=== PATIENT | female | born 1980 | race Caucasian/White ===

== ENCOUNTER → 2016-11-28 | Outpatient (CLI) | payer OTHER ==
--- NOTE | 2016-11-28 09:18 | NM ---
EXAMINATION TYPE: NM hepatobiliary w EF DATE OF EXAM: 11/28/2016 COMPARISON: NONE HISTORY: Right upper quadrant pain. TECHNIQUE: After the intravenous administration of 5.06 mCi Tc 99m Mebrofenin hepatobiliary scintigra phy is performed. Immediate images post injection. FINDINGS: There is satisfactory initial accumulation of tracer by the liver. The gallbladder is visualized wit hin 18 minutes. The small bowel activity is noted within 18 minutes. At one hour 8 ounces of oral e nsure plus is given to mimic CCK and gallbladder ejection fraction is calculated at 82 %, above leslie l. Therefore there is no scintigraphic evidence of cystic or common bile duct obstruction to suggest acute cholecystitis or gallbladder dyskinesia. IMPRESSION: HYPERCONTRACTILITY OF THE GALLBLADDER.
== END | disposition home or self-care (01) ==
LOC: RADNMMAIN 06:51
PROVIDERS: ATTEND Family Medicine
DX: K82.8 Other specified diseases of gallbladder (principal); R10.11 Right upper quadrant pain
CPT/HCPCS: 78226; A9537

== ENCOUNTER 2016-12-16 06:27 | Day surgery (SDC) | payer OTHER ==
[2016-12-13 11:27] VITALS: BMI 18.6
[~2016-12-16 06:27] MED LIST: DEXAMETHASONE SOD PHOSPHATE 10 MG/ML 1 ML VIAL IV ONE; HEPARIN SODIUM,PORCINE 5,000 UNIT/ML 1 ML VIAL SQ ONE; LACTATED RINGERS 1,000 ML IV SCH; MIDAZOLAM 2 MG/2 ML VIAL IV PRN; SCOPOLAMINE 1.5MG/72HR PATCH TRANSDERM ONE; ceFAZolin 2 GM in SODIUM CHLORIDE 0.9% 100 ML IVPB ONE
[2016-12-16 07:02] LABS: Glucose,Whole Blood 91 mg/dL (75-99)
[2016-12-16] MEDS: ONDANSETRON 4 MG/2 ML VIAL IVP ONE ×2 (07:10→10:05)
[2016-12-16] MEDS ORDERED: KETOROLAC 30 MG/ML 1 ML VIAL ONE (08:09)
[2016-12-16] MEDS ORDERED: ROCURONIUM BROMIDE 10 MG/ML 10 ML VIAL IV ONE (08:09)
[2016-12-16] MEDS ORDERED: LIDOCAINE 1% INJ 10MG/ML (20 ML MDV) ONE (08:09)
[2016-12-16] MEDS ORDERED: MIDAZOLAM 2 MG/2 ML VIAL ONE (08:09)
[2016-12-16] MEDS ORDERED: NEOSTIGMINE 1 MG/ML 10 ML VIAL ONE (08:09)
[2016-12-16] MEDS ORDERED: GLYCOPYRROLATE 0.2 MG/ML 2 ML VIAL ONE ×2 (08:09)
[2016-12-16] MEDS ORDERED: SUCCINYLCHOLINE CHLORIDE 100 MG/5 ML SYR IV ONE (08:09)
[2016-12-16] MEDS ORDERED: fentaNYL (PF) 50 MCG/ML 2 ML AMP ONE (08:09)
[2016-12-16] MEDS ORDERED: PROPOFOL 10 MG/ML 20 ML VIAL IV ONE (08:09)
--- NOTE | 2016-12-16 08:10 | P.GSHP ---
History of Present Illness H&P Date: 12/16/16 Chief Complaint: Cholecystitis This a 36-year-old female who presents today for laparoscopic cholecystectomy. Patient's complaints were quadrant pain. She has abnormal ejection fraction on HIDA scan. Past Medical History Past Medical History: GERD/Reflux Additional Past Medical History / Comment(s): HYPOGLYCEMIA, IBS History of Any Multi-Drug Resistant Organisms: None Reported Past Surgical History: Orthopedic Surgery, Uterine Ablation Additional Past Surgical History / Comment(s): NOVASURE, ARTHROSCOPY LEFT KNEE. COLONOSCOPY, EGD. 02/09/15 Lap Edgar fundoplication. Past Anesthesia/Blood Transfusion Reactions: Previous Problems w/ Anesthesia, Motion Sickness Additional Past Anesthesia/Blood Transfusion Reaction / Comment(s): FELT LIGHTHEADED FOR A COUPLE DAYS AFTER SURGERY. Smoking Status: Current every day smoker - Past Family History Sister(s) Family Medical History: Cancer Additional Family Medical History / Comment(s): CERVICAL Father Family Medical History: Coronary Artery Disease (CAD), Hypertension Additional Family Medical History / Comment(s): Father is 57 yrs old. Mother Family Medical History: Cancer, Hyperlipidemia Additional Family Medical History / Comment(s): Mother has had skin cancer. She is 58 yrs old. Medications and Allergies Home Medications Medication Instructions Recorded Confirmed Type Dicyclomine [Bentyl] 20 mg PO QID 08/19/14 12/16/16 History Amitriptyline HCl 25 mg PO HS 12/13/16 12/16/16 History Baclofen [Lioresal] 20 mg PO QID 12/13/16 12/16/16 History Omeprazole [PriLOSEC] 20 mg PO AC-BID 12/13/16 12/16/16 History Prochlorperazine [Compazine] 10 mg PO Q8H 12/13/16 12/16/16 History Allergies Allergy/AdvReac Type Severity Reaction Status Date / Time onion [Onion] Allergy Severe Anaphylaxis Verified 12/16/16 06:41 Sulfa (Sulfonamide Allergy Rash/Hives Verified 12/16/16 06:41 Antibiotics) Surgical - Exam Vital Signs Temp Pulse Resp BP Pulse Ox 98.1 F 73 18 111/68 100 12/16/16 06:48 12/16/16 06:48 12/16/16 06:48 12/16/16 06:48 12/16/16 06:48 - General well developed, no distress - Eyes PERRL - ENT normal pinna - Neck no masses - Respiratory normal expansion - Cardiovascular Rhythm: regular - Abdomen Mild right upper quadrant tenderness Abdomen: soft Assessment and Plan Plan: Chronic cholecystitis We'll perform laparoscopic cholecystectomy.
[2016-12-16] MEDS ORDERED: BUPIVACAINE (PF) 0.25% 30 ML VIAL SQ ONE (08:38)
[2016-12-16] MEDS ORDERED: LIDOCAINE 2%-EPI 1:100,000 20 ML VIAL SQ ONE (08:39)
--- NOTE | 2016-12-16 08:52 | P.OP ---
Date of Procedure: 12/16/16 Preoperative Diagnosis: Cholecystitis Postoperative Diagnosis: Cholecystitis Procedure(s) Performed: Laparoscopic cholecystectomy Implants: Anesthesia: CRISTÓBAL Surgeon: Michael Christianson Estimated Blood Loss (ml): 5 Pathology: other (Gallbladder) Condition: stable Disposition: PACU Indications for Procedure: Operative Findings: Description of Procedure: The patient was placed on the operating table. The patient received a general endotracheal tube anesthesia. The patients abdomen was prepped and draped in the usual sterile fashion. Through an infraumbilical stab incision, the fascia of the anterior abdominal wall was grasped with a pair of Kochers and then the Veress needle was placed in the peritoneal cavity. Position of the Veress needle was confirmed with positive drop test. The abdomen was then insufflated. After adequate insufflation, the 10 mm trocar was placed in the peritoneal cavity. Following this the laparoscope was placed in the peritoneal cavity. The patient was placed in the head-up, right side up position and then a 5 mm trocar was placed in the right lateral and right subcostal position under direct visualization. A 8 mm trocar was placed in the epigastric position. The gallbladder was grasped in the fundus and infundibulum. Traction on the gallbladder was placed in the lateral and the cephalad positions. The triangle of Calot was visualized.. The cystic duct was bluntly dissected until the union of the cystic duct and common bile duct was seen. The cystic duct was then divided and sealed with the Harmonic scissors. A PDS Endoloop was then placed throughout the cystic duct stump. The cystic artery divided and sealed with the Harmonic scissors. The gallbladder was then removed from the liver bed using Harmonic scissors. The gallbladder was then extracted through the epigastric port site. Operative field was checked for any bleeding spots and Harmonic scissors was used to coagulate the liver bed. The abdomen was irrigated. The trocars were removed. The skin was closed using interrupted 3-0 Vicryl suture. Dermabond dressing were applied. The patient tolerated the procedure well.
[2016-12-16] MEDS ORDERED: LACTATED RINGERS 1,000 ML IV ONE (08:55)
[2016-12-16 09:13] VITALS: TEMP 97.3
[2016-12-16] MEDS: HYDROmorphone 1 MG/ML 1 ML SYRINGE IVP PRN ×4 (09:29→09:44)
[2016-12-16] MEDS ORDERED: METOCLOPRAMIDE 5 MG/ML 2 ML VIAL IVP ONE (10:05)
[2016-12-16] MEDS ORDERED: HYDROcodone/APAP 7.5-325MG 1 EACH TAB PO ONE (10:22)
[2016-12-16 10:35] VITALS: RESP 16
[2016-12-16 11:05] VITALS: BP 134/88; PULSE 89
== END 2016-12-16 11:05 | disposition home or self-care (01) ==
LOC: OR 06:27
PROVIDERS: ATTEND Surgery
DX: K81.1 Chronic cholecystitis (principal); K21.9 Gastro-esophageal reflux disease without esophagitis; F17.200 Nicotine dependence, unspecified, uncomplicated; Z88.2 Allergy status to sulfonamides; Z79.899 Other long term (current) drug therapy; Z82.49 Family history of ischemic heart disease and other diseases of the circulatory system
CPT/HCPCS: 47562; 81025; 88304; J2250; J1644; J1100; J2710; J2765; J0690; J2405; J2001; J3010; J1885; J1170; J0330; J2704

== ENCOUNTER 2017-05-29 22:08 | Emergency (ER) | payer OTHER ==
[2017-05-29 22:18] VITALS: BP 141/88; PULSE 100; RESP 20; TEMP 98.2
[2017-05-29] MEDS ORDERED: KETOROLAC 60 MG/2 ML VIAL IM STA (22:32)
--- NOTE | 2017-05-29 22:38 | ED ---
General Adult HPI - General Chief complaint: Extremity Injury, Upper Stated complaint: Shoulder pain Time Seen by Provider: 05/29/17 22:26 Source: patient, RN notes reviewed Mode of arrival: ambulatory Limitations: no limitations - History of Present Illness Initial comments: Patient is a 37-year-old female who presents emergency room today with a chief complaint of chronic right shoulder primarily is increased over the last few days. States she's been using ibuprofen and Tylenol with little relief. States worse with any movement. States she has seen the family doctor had x- rays a few weeks ago. States she has talked about following up with orthopedics. States she's seeing orthopedics in the past as told that she needed surgery on the shoulder. She denies any frequency associated symptoms. Patient denies any recent fever, chills, shortness of breath, chest pain, back pain, abdominal pain, nausea or vomiting, numbness or tingling, headaches or visual changes, or any other complaints. - Related Data Home Medications Medication Instructions Recorded Confirmed Dicyclomine [Bentyl] 20 mg PO QID 08/19/14 12/16/16 Amitriptyline HCl 25 mg PO HS 12/13/16 12/16/16 Baclofen [Lioresal] 20 mg PO QID 12/13/16 12/16/16 Omeprazole [PriLOSEC] 20 mg PO AC-BID 12/13/16 12/16/16 Prochlorperazine [Compazine] 10 mg PO Q8H 12/13/16 12/16/16 Previous Rx's Medication Instructions Recorded Docusate [Colace] 100 mg PO BID #20 capsule 12/16/16 HYDROcodone/APAP 7.5-325MG [[place] 1 each PO Q4H PRN #60 tab 12/16/16 7.5] traMADol HCl [Ultram] 50 mg PO Q6H PRN #20 tab 05/29/17 Allergies Allergy/AdvReac Type Severity Reaction Status Date / Time onion [Onion] Allergy Severe Anaphylaxis Verified 05/29/17 22:18 Sulfa (Sulfonamide Allergy Rash/Hives Verified 05/29/17 22:18 Antibiotics) Review of Systems ROS Statement: Those systems with pertinent positive or pertinent negative responses have been documented in the HPI. ROS Other: All systems not noted in ROS Statement are negative. Past Medical History Past Medical History: GERD/Reflux Additional Past Medical History / Comment(s): HYPOGLYCEMIA, IBS History of Any Multi-Drug Resistant Organisms: None Reported Past Surgical History: Orthopedic Surgery, Uterine Ablation Additional Past Surgical History / Comment(s): NOVASURE, ARTHROSCOPY LEFT KNEE. COLONOSCOPY, EGD. 02/09/15 Lap Edgar fundoplication. Past Anesthesia/Blood Transfusion Reactions: Previous Problems w/ Anesthesia, Motion Sickness Additional Past Anesthesia/Blood Transfusion Reaction / Comment(s): FELT LIGHTHEADED FOR A COUPLE DAYS AFTER SURGERY. Past Psychological History: Anxiety, Depression Smoking Status: Current every day smoker Past Alcohol Use History: None Reported Past Drug Use History: None Reported - Past Family History Sister(s) Family Medical History: Cancer Additional Family Medical History / Comment(s): CERVICAL Father Family Medical History: Coronary Artery Disease (CAD), Hypertension Additional Family Medical History / Comment(s): Father is 57 yrs old. Mother Family Medical History: Cancer, Hyperlipidemia Additional Family Medical History / Comment(s): Mother has had skin cancer. She is 58 yrs old. General Exam - General Exam Comments Initial Comments: General: The patient is awake and alert, in no distress, and does not appear acutely ill. Neck: The neck is supple, there is no tenderness or JVD. Cardiovascular: There is a regular rate and rhythm. No murmur, rub or gallop is appreciated. Respiratory: Lungs are clear to auscultation, respirations are non-labored, breath sounds are equal. No wheezes, stridor, rales, or rhonchi. Musculoskeletal: Normal appearance of her shoulder no obvious deformity. Patient does have tender over the superior and anterior aspect of the right shoulder. Mild tenderness in the bicipital groove. No tenderness to the right humerus, elbow, wrist or hand. Shows full range of motion all other areas other than shoulder itself. Range motion decreased due to pain. Sensations are intact pulses equal bilaterally 2+. Neurological: A&O x 3. CN II-XII intact, There are no obvious motor or sensory deficits. Coordination appears grossly intact. Speech is normal. Skin: Skin is warm and dry and no rashes or lesions are noted. Psychiatric: Normal mood and affect. Limitations: no limitations Course Vital Signs 05/29/17 22:15 Temperature 98.2 F Pulse Rate 100 Respiratory 20 Rate Blood Pressure 141/88 O2 Sat by Pulse 98 Oximetry Medical Decision Making - Medical Decision Making Options were discussed with patient about repeat x-rays here today. She has declined. Patient is advised follow-up with orthopedic. Advised to discuss the MRI. Advised to continue anti-inflammatories will be given a short prescription of tramadol. Disposition Clinical Impression: Chronic shoulder pain Disposition: HOME SELF-CARE Condition: Good Instructions: Shoulder Pain (ED) Additional Instructions: Please follow-up with orthopedics for further evaluation and MRI as discussed. Please use or complications as discussed return here to the emergency room for any other concerns. Prescriptions: traMADol HCl [Ultram] 50 mg PO Q6H PRN #20 tab PRN Reason: Pain Referrals: Mariely Rubio MD [Primary Care Provider] - 1-2 days Tylor Ruiz MD [STAFF PHYSICIAN] - 1-2 days Time of Disposition: 22:36
== END 2017-05-29 22:50 | disposition home or self-care (01) ==
LOC: EC 22:08
DX: M25.511 Pain in right shoulder (principal); G89.29 Other chronic pain; K21.9 Gastro-esophageal reflux disease without esophagitis; F41.9 Anxiety disorder, unspecified; F32.9 Major depressive disorder, single episode, unspecified; F17.200 Nicotine dependence, unspecified, uncomplicated; Z79.899 Other long term (current) drug therapy; Z91.018 Allergy to other foods; Z88.2 Allergy status to sulfonamides; Z53.29 Procedure and treatment not carried out because of patient's decision for other reasons
CPT/HCPCS: 99283; 96372; J1885

== ENCOUNTER → 2018-05-25 | Outpatient (CLI) | payer OTHER ==
[2018-05-25 20:48] LABS: Anti-DNA, DS unit <1.0 IU/mL; DNA Double-Stranded NEGATIVE (NEGATIVE)
== END | disposition home or self-care (01) ==
LOC: LABWHC1 12:56
PROVIDERS: ATTEND Nurse Practitioner Family
DX: R76.8 Other specified abnormal immunological findings in serum (principal)
CPT/HCPCS: 36415; 86225

== ENCOUNTER → 2018-06-25 | Outpatient (CLI) | payer OTHER ==
--- NOTE | 2018-06-25 11:14 | US ---
EXAMINATION TYPE: US venous doppler duplex LE RT DATE OF EXAM: 06/25/2018 10:57 AM COMPARISON: NONE CLINICAL HISTORY: 38-year-old female with right Lower Ext, Pain and Swelling M79.661 R22.41. SIDE PERFORMED: Right TECHNIQUE: The lower extremity deep venous system is examined utilizing real time linear array sonog randi with graded compression, doppler sonography and color-flow sonography. FINDINGS: VESSELS IMAGED: External Iliac Vein (EIV) Common Femoral Vein Deep Femoral Vein Greater Saphenous Vein * Femoral Vein Popliteal Vein Small Saphenous Vein * Proximal Calf Veins (* superficial vessels) Right Leg: Negative for DVT IMPRESSION: No evidence for DVT within the right lower extremity imaged from the groin to the upper calf.
== END | disposition home or self-care (01) ==
LOC: RADUSWWP 10:36
PROVIDERS: ATTEND Family Medicine
DX: M79.661 Pain in right lower leg (principal); R22.41 Localized swelling, mass and lump, right lower limb

== ENCOUNTER → 2021-07-29 | Outpatient (CLI) | payer OTHER ==
--- NOTE | 2021-07-29 16:35 | MR ---
EXAMINATION TYPE: MR brain wo con DATE OF EXAM: 07/29/2021 COMPARISON: None HISTORY: Migraine CONTRAST: Performed utilizing 0 mL intravenous Gadavist gadolinium contrast. TECHNIQUE: Multiplanar, multiecho imaging on a 3.0 Alessandra magnet is performed through the brain. Stud y is performed within 24 hours of arrival to the hospital. The craniovertebral junction is normal. The pituitary is normal. Diffusion-weighted imaging is performed. No abnormal hyperintensity is present to suggest an acute i ntracranial infarct or acute ischemic change. There is a punctate hyperintensity identified on inversion recovery weighted sequences within the rig ht posterior frontal lobe near the external capsule the right basal ganglion nonspecific could be rel ated to some microvascular ischemic change. Gliosis such as associated with migraine headaches is wit hin the differential. This is not out of proportion to the patient's age. Ventricles and sulci are appropriate for the patient age. IMPRESSIONS: 1. Nonspecific punctate white matter change can be associated with migraine headache or microvascular ischemic change. This is not out of proportion for the patient's age.
== END | disposition home or self-care (01) ==
LOC: RADMRIMAIN 11:19
PROVIDERS: ATTEND Family Medicine
DX: G43.909 Migraine, unspecified, not intractable, without status migrainosus (principal)
CPT/HCPCS: 70551